=== PATIENT | female | born 1945 | race Caucasian/White ===

== ENCOUNTER → 2020-10-18 | Outpatient (CLI) | payer MEDICARE ==
[2020-10-18 11:34] LABS: Creatinine, Urine Random 35.1 mg/dL (27.00-270.00); Microalb/Creat Ratio UR, Rand 48.718 mg/g (0.000-30.000); Microalbumin, Random Urine 17.1 mg/L (0.000-20.000)
[2020-10-18 11:39] LABS: Source, Urine Clean Catch
[2020-10-18 16:07] LABS: Appearance, Urine Clear (Clear); Bilirubin, Urine Neg (Neg); Blood, Urine 1+ (Neg); Glucose Qualitative, Urine Neg (Neg); Ketones, Urine Neg (Neg); Leukocyte Esterase, Urine 3+ (Neg); Nitrite, Urine Neg (Neg); Protein, Urine Neg (Neg); Urobilinogen, Urine NORM (Normal)
[2020-10-18 16:17] LABS: Color, Urine Pale Yellow (P-Yellow)
[2020-10-18 16:18] LABS: Bacteria Few /hpf; Squamous Epithelial Cells Few /hpf (Few); White Blood Cells, Urine 25-50 /hpf (0-5)
== END | disposition home or self-care (01) ==
LOC: LAB SHORT 09:57 → LAB 09:57
PROVIDERS: Family Medicine; Physician Assistant
DX: N18.30 Chronic kidney disease, stage 3 unspecified (principal); R35.0 Frequency of micturition
CPT/HCPCS: 81001; 82043; 82570; 87086

== ENCOUNTER 2021-09-19 09:49 | Day surgery (SDC) | payer MEDICARE ==
[~2021-09-19] VITALS: Ht 162.6 cm; Wt 79.7 kg
[~2021-09-19 09:49] MED LIST: ALEN70 PO; ASPIR 8181 M1 PO; CALCIUM CARBONATE PO; Carvedilol12.5 MG PO; LISI5 PO; PANT40 PO; ROSU10TA PO; VIT D3 PO; [UNRECOGNIZED DRUG - OTHER] PO
--- NOTE | 2021-09-19 14:42 | NUR ---
PATIENT UP OOB, OFF MONITOR. DRESSED ADN REVIEWED DISCHARGE INSTRUCTIONS WITH THE PATIENT. NADEEM HAS ANTIBIOTIC CALLED INTO [facility] ON [address] AND WILL PICK IT UP ON THE WAY HOME. FOLLOW UP APPOINTMENT IN [facility] AND WOUND CHECK APPOINTMENT IN ONE WEEK. LAURENTT UNSERTANDS ALL AND NO FURTHER QUESTIONS NOTED. DRESSING CDI. ICE PACK SENT HOME WITH THE PATIENT DISCHARGE VIA WHEELCHAIR. PIV REMOVED AND CATH TIP INTACT. PRESSURE DRESSING APPLIED.
== END 2021-09-19 15:07 | disposition home or self-care (01) ==
LOC: MHTC 09:49
DX: Z45.018 Encounter for adjustment and management of other part of cardiac pacemaker (principal); I49.5 Sick sinus syndrome; I25.10 Atherosclerotic heart disease of native coronary artery without angina pectoris; I10 Essential (primary) hypertension; E78.5 Hyperlipidemia, unspecified; K21.9 Gastro-esophageal reflux disease without esophagitis; Z88.0 Allergy status to penicillin; Z88.5 Allergy status to narcotic agent; Z79.82 Long term (current) use of aspirin; Z79.899 Other long term (current) drug therapy
CPT/HCPCS: 33228; 93005; 93010; 99152; 99153; C1781; C1785; J0690; J1644; J2250; J3010; J3370; J7030; J7040; J7060

== ENCOUNTER 2021-10-01 15:28 | Inpatient (IN) | payer MEDICARE ==
[~2021-10-01] VITALS: Ht 162.6 cm; Wt 76.7 kg
[2021-10-01] MEDS ORDERED: OXAYDO5 M1 PO (18:00)
[2021-10-02 05:24] LABS: BASOPHILS ABSOLUTE AUTO 0.02 K/mm3 (0.00-0.23); BASOPHILS PERCENT AUTO 0 % (0-2); EOSINOPHILS ABSOLUTE AUTO 0.06 K/mm3 (0.00-0.68); EOSINOPHILS PERCENT AUTO 1 % (0-6); Hematocrit 36.5 % (33.0-51.0); Hemoglobin 12.1 g/dL (11.5-16.0); IMMATURE GRAN ABSOLUTE AUTO 0.04 K/mm3 (0.00-0.10); IMMATURE GRAN PERCENT AUTO 1 % (0-1); LYMPHOCYTES ABSOLUTE AUTO 0.67 K/mm3 (0.84-5.20); LYMPHOCYTES PERCENT AUTO 11 % (21-46); MONOCYTES ABSOLUTE AUTO 0.53 K/mm3 (0.16-1.47); MONOCYTES PERCENT AUTO 9 % (4-13); Mean Corpuscular HGB Conc 33.2 g/dL (31.5-36.5); Mean Corpuscular Volume 97 fL (80-100); Mean Platelet Volume 10.9 fL (9.1-12.4); NEUTROPHILS ABSOLUTE AUTO 4.62 K/mm3 (1.96-9.15); NEUTROPHILS PERCENT AUTO 78 % (41-73); Platelet Count 110 K/mm3 (150-400); RDW Coefficient Variation 12.3 % (11.7-14.2); RDW Standard Deviation 43.7 fL (35.1-46.3); Red Blood Cell Count 3.78 M/mm3 (3.80-5.20); White Blood Cell Count 5.94 K/mm3 (4.00-11.30)
[2021-10-02 05:44] LABS: Albumin, Blood 3.4 g/dL (3.4-5.0); Albumin/Globulin Ratio 1.1 (0.8-1.8); Bilirubin, Total 0.8 mg/dL (0.1-1.0); Bun/Creatinine Ratio 14.1 (12.0-20.0); Calcium, Blood 8.8 mg/dL (8.5-10.1); Creatinine, Blood 0.85 mg/dL (0.40-1.00); Globulin, Blood 3.2 g/dL (2.2-4.0); Potassium, Blood 3.5 mmol/L (3.5-5.5); Total Protein, Blood 6.6 g/dL (6.4-8.2)
--- NOTE | 2021-10-02 06:24 | NUR ---
summary pt arrived to floor in no distress. pt discomfort has been tx as per emar with relief. call light in reach.
--- NOTE | 2021-10-02 08:09 | NUR ---
MESSAGE LEFT WITH PT'S PHARMACY REGARDING HOME MEDICATION LIST. PT WAS ABLE TO HAVE PICTURES OF HER MEDICATION BOTTLES SENT TO HER PHONE, HOWEVER THIS RN UNABLE TO READ SOME OF THE INSTRUCTIONS. PT NOTIFIED THAT HER PHARMACY DOES NOT OPEN UNTIL 10AM, PLAN TO CLARIFY MEDICATIONS AFTER PHARMACY OPENS.
--- NOTE | 2021-10-02 17:45 | NUR ---
SHIFT SUMMARY PT REMAINS IN THE HOSPITAL R/T PAIN FROM AN L2 COMPRESSION FX AFTER A FALL. PT WORKED WITH THERAPY TODAY AND RECOMMENDATION WAS FOR HOME WITH HOME HEALTH VS SNF. PLAN FOR PT TO REMAIN OVERNIGHT FOR FURTHER PT/OT TOMORROW THEN POSSIBLE DISCHARGE HOME. PAIN MANAGED WITH OXYCODONE THIS SHIFT. PT IS A 1 PERSON ASSIST FOR TRANSFERS. WILL MONITOR UNTIL REPORT TO NOC RN.
[2021-10-03 05:25] LABS: BASOPHILS ABSOLUTE AUTO 0.01 K/mm3 (0.00-0.23); BASOPHILS PERCENT AUTO 0 % (0-2); EOSINOPHILS ABSOLUTE AUTO 0.12 K/mm3 (0.00-0.68); EOSINOPHILS PERCENT AUTO 2 % (0-6); Hematocrit 35.9 % (33.0-51.0); Hemoglobin 11.9 g/dL (11.5-16.0); IMMATURE GRAN ABSOLUTE AUTO 0.03 K/mm3 (0.00-0.10); IMMATURE GRAN PERCENT AUTO 1 % (0-1); LYMPHOCYTES ABSOLUTE AUTO 0.73 K/mm3 (0.84-5.20); LYMPHOCYTES PERCENT AUTO 15 % (21-46); MONOCYTES ABSOLUTE AUTO 0.41 K/mm3 (0.16-1.47); MONOCYTES PERCENT AUTO 8 % (4-13); Mean Corpuscular HGB Conc 33.1 g/dL (31.5-36.5); Mean Corpuscular Volume 97 fL (80-100); Mean Platelet Volume 11.1 fL (9.1-12.4); NEUTROPHILS ABSOLUTE AUTO 3.67 K/mm3 (1.96-9.15); NEUTROPHILS PERCENT AUTO 74 % (41-73); Platelet Count 118 K/mm3 (150-400); RDW Coefficient Variation 12.3 % (11.7-14.2); Red Blood Cell Count 3.72 M/mm3 (3.80-5.20); White Blood Cell Count 4.97 K/mm3 (4.00-11.30)
[2021-10-03 05:49] LABS: Bun/Creatinine Ratio 15.2 (12.0-20.0); Calcium, Blood 8.7 mg/dL (8.5-10.1); Creatinine, Blood 0.92 mg/dL (0.40-1.00); Potassium, Blood 3.5 mmol/L (3.5-5.5)
--- NOTE | 2021-10-03 07:40 | NUR ---
SUMMARY PT WITH SLOW AND CAUTIOUS AMBULATION.USES WALKER.PO PAIN MEDS EFFECTIVE.
--- NOTE | 2021-10-03 08:00 | NUR ---
DR. WILKES ROUNDED AND PROVIDED PT EDUCATION REGARDING USE OF LOVENOX AND ADVIL. PT RESPONDED WELL TO EDUCATION BUT OFTEN BECOMES CONFUSED AND FORGETFUL REGARDING MEDICATIONS.
--- NOTE | 2021-10-03 19:42 | NUR ---
SHIFT SUMMARY PT WORKED WITH PT/OT AGAIN TODAY. PHYSICAL THERAPY RECOMMENDED SNF VS HOME HEALTH. PT STATED SHE DOES NOT WANT TO GO TO SNF. DR. WILKES SPOKE WITH HER, PLAN FOR ADDITIONAL THERAPY TOMORROW FOR SAFETY. PT COMPLAINED OF NAUSEA T/O THE DAY. PT REPORTS NO BM SINCE WEDNESDAY, PT ENCOURGED TO TAKE BOWEL CARE, SHE DECLINED MIRALAX AND METAMUCIL. DR. WILKES NOTIFED ABOUT BOWEL CARE, EDUCATION PROVIDED TO PT AND ADDITIONAL BOWEL CARE MEDICATIONS ORDERED. PT EDUCATED THAT CONSTIPATION MAY BE CONTRIBUTING TO NAUSEA. REPORT GIVEN TO TRACY CHAKRABORTY RN. WILL MONITOR UNTIL REPORT TO MYLENE RN.
--- NOTE | 2021-10-04 06:08 | NUR ---
SHIFT SUMMARY NO ACUTE CHANGES OVERNIGHT. PT REPORTS BACK PAIN (MODERATE) 4-7/10 PAIN LEVEL. PAIN MANAGED WITH 5MG OXYCODONE. VOIDING WITHOUT ISSUES. USED FWW AND GB, 1SBA AT [facility] [place]. PT TOLERATING PO INTAKE. DENIES NAUSEA AND VOMITING. AOX4. COOPERATIVE WITH CARE. SLEPT GOOD OVERNIGHT. PT DENIES NAUSEA T/O SHIFT. CALL LIGHT WITHIN REACH. WILL PROVIDE REPORT TO ONCOMING NURSE. PLAN TO DC HOME TODAY AFTER THERAPY SESSION.
[2021-10-04] MEDS ORDERED: CALCITONIN-SAL3.7 M1 (09:49)
[2021-10-04] MEDS ORDERED: ONDA4ODT MM (09:50)
[2021-10-04] MEDS ORDERED: DOCU100 PO (09:50)
[2021-10-04] MEDS ORDERED: OXAYDO5 M8 PO (09:51)
[2021-10-04] MEDS ORDERED: MIRALAX17 GM PO (09:52)
--- NOTE | 2021-10-04 14:53 | NUR ---
DISCHARGE SUMMARY S/P COMRESSION FX, NON SURGICAL, A/O X4, VSS, TOLERATING PO, PAIN WELL MANAGED, AMBULATING c ASSISTANCE. DISCUSSED DISCHARGE INFORMATION WITH THE PATIENT INCLUDING HOME CARE, MEDICATIONS, PAIN MANAGEMENT, NON OPIOID PAIN TECHNIQUES, AND FOLLOW UP CARE. PROVIDED CONTACT INFORMATION SHOULD QUESTIONS COME UP AFTER DISCHARGE. NO QUESTIOSN AT THIS TIME. PATIENT ESCORTED OUT VIA WC TO PRIVATE AUTO TO GO HOME.
== END 2021-10-04 14:35 | disposition home health service (06) | DRG 552 ==
LOC: ER 15:28 → SURS 15:29
PROVIDERS: Hospitalist; ADMIT Internal Medicine
DX: S32.020A Wedge compression fracture of second lumbar vertebra, initial encounter for closed fracture (principal); S32.010A Wedge compression fracture of first lumbar vertebra, initial encounter for closed fracture; M51.36 Other intervertebral disc degeneration, lumbar region; K21.9 Gastro-esophageal reflux disease without esophagitis; E78.5 Hyperlipidemia, unspecified; K57.90 Diverticulosis of intestine, part unspecified, without perforation or abscess without bleeding; I11.0 Hypertensive heart disease with heart failure; I50.9 Heart failure, unspecified; I25.10 Atherosclerotic heart disease of native coronary artery without angina pectoris; Z98.890 Other specified postprocedural states; Z88.0 Allergy status to penicillin; Z88.8 Allergy status to other drugs, medicaments and biological substances; Z88.5 Allergy status to narcotic agent; Z95.0 Presence of cardiac pacemaker; Z95.1 Presence of aortocoronary bypass graft; Z91.041 Radiographic dye allergy status; Z79.82 Long term (current) use of aspirin; Z79.899 Other long term (current) drug therapy; W18.09XA Striking against other object with subsequent fall, initial encounter
CPT/HCPCS: 36415; 72131; 72192; 80048; 80053; 85025; 96374; 96375; 97162; 97165; 97530; 97535; 99285-25; A9270; J1170; J1650; J1885; J2765; J3010; J7030

== ENCOUNTER → 2022-11-04 | Outpatient (CLI) | payer MEDICARE ==
[~2022-11-04] MED LIST changes: +CALCITONIN-SAL3.7 M1; +DOCU100 PO; +MIRALAX17 GM PO; +ONDA4ODT MM; +OXAYDO5 M1 PO; +OXAYDO5 M8 PO
== END ==
LOC: LAB SHORT 07:42 → PLD 07:42 → LAB 07:42
DX: C44.629 Squamous cell carcinoma of skin of left upper limb, including shoulder (principal); L85.8 Other specified epidermal thickening
CPT/HCPCS: 88305

== ENCOUNTER → 2022-12-15 | Outpatient (CLI) | payer MEDICARE | LOC: LAB SHORT 15:14 → LAB 15:14 → PLD 15:14 | DX: D48.5 Neoplasm of uncertain behavior of skin (principal) | CPT/HCPCS: 88305 ==